=== PATIENT | female | born 1940 | race Caucasian/White ===

== ENCOUNTER 2017-05-04 11:54 | Observation (INO) ==
[2017-05-04] MEDS ORDERED: Vancomycin 1,000 MG in D5% in Water 250 ML IVPB ONE (12:28)
[2017-05-04] MEDS ORDERED: Ringers Solution, Lactated 1,000 ML IVC SCH (12:30)
--- NOTE | 2017-05-04 12:38 | Anesthesia Evaluation PreOp ---
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 Significant HX Other Medical History: Renal (one kidney, s/p donor nephrectomy), Diabetes Type II Anesthesia History: No Prior Anesthetic Complications, Past Anesthesia (donor nephrectomy, hysterectomy, tonisllectomy, cataract, liver bx, jaw fx, angioplasty, foot sx) Alcohol Use: none Drug use: none Medications and Allergies Clopidogrel [Plavix] 75 mg PO DAILY 05/02/17 [History] Insulin Glargine,Hum.rec.anlog [Lantus Solostar] 15 unit SQ QPM 05/02/17 [ History] Lisinopril [Zestril] 20 mg PO QPM 05/02/17 [History] Lisinopril [Zestril] 40 mg PO QAM 05/02/17 [History] Meclizine [Antivert] 25 mg PO TID PRN 05/02/17 [History] Oxycodone HCl [Oxaydo] 5 mg PO Q8H PRN 05/02/17 [History] Rosuvastatin [Crestor] 10 mg PO DAILY 05/02/17 [History] 3 Allergy/AdvReac Type Severity Reaction Status Date / Time cephalexin [From Keflex] AdvReac See Verified 05/04/17 12:34 Comments IV DYE AdvReac See Uncoded 05/04/17 12:34 Comments - Meds/Allergy Pre-op Review Medications Reviewed: Yes Allergies Reviewed: Yes Beta Blockers on Current Med List: No Anesthesia Results - Labs Laboratory Tests 03/22/17 05/01/17 05/01/17 10:57 10:48 10:48 WBC Hgb Hct Plt Count PT 13.3 H INR 1.2 APTT 30.0 Sodium 136 Potassium 3.9 Chloride 104 Carbon Dioxide 26 BUN 32 H Creatinine 1.76 H Glucose 149 H Est Mean Plasma Glucose 120 Hemoglobin A1c 5.8 H 05/01/17 10:48 WBC 9.0 Hgb 10.6 L Hct 34.9 L Plt Count 363 PT INR APTT Sodium Potassium Chloride Carbon Dioxide BUN Creatinine Glucose Est Mean Plasma Glucose Hemoglobin A1c - Imaging EKG: report reviewed (SR) Anesthesia Exam O2 Sat Height 1.57 m Height 1.57 m Height 1.57 m Weight 57.606 kg Weight 57.606 kg Weight 57.606 kg O2 Sat by Pulse Oximetry 96 Vital Signs Temp Pulse Resp BP Pulse Ox 99.0 F 95 18 153/75 96 05/04/17 12:30 05/04/17 12:30 05/04/17 12:30 05/04/17 12:30 05/04/17 12:30 Height: 1.57m Weight: 57kg NPO (# of Hours): >8 - HEENT Pupil (Motor): Pupils equal, EOMI Mallampati: II Teeth: Edentulous, Prosthesis (dentures upper and lower) Oral Opening: Greater than 3 - SENIOR MASTER SCHEDULER LOC: Oriented SENIOR MASTER SCHEDULER Motor: Normal RUE, Normal LUE, Normal RLE, Normal LLE, Normal Face SENIOR MASTER SCHEDULER Sensory: Normal: RUE, LUE, RLE, LLE, Face - Cardiac Rhythm: Regular - Pulmonary Breath Sounds: bilateral Clear Respiratory Effort: Symmetrical Anesthesia Assess/Plan ASA Score: 3 Modified Ragland Scale for Level of Consciousness: Cooperative, oriented, and tranquil Anesthetic Plan: General (r/b/a discussed, questions answered, consent obtained) Monitoring Plan: Standard Monitors, A-Line Recovery Plan: PACU
[2017-05-04] MEDS ORDERED: Heparin 1,000 UNITS/500 mL 1,000 ML ONE (12:59)
[2017-05-04] MEDS ORDERED: *HR* Propofol 200 MG/20 ML VIAL IVP ONE (12:59)
[2017-05-04] MEDS ORDERED: *HR* Rocuronium Bromide 50 MG/5 ML VIAL ONE (12:59)
[2017-05-04] MEDS ORDERED: Lidocaine -MPF 2% 2 ML VIAL ONE (12:59)
[2017-05-04] MEDS ORDERED: *HR* FentaNYL (PF) 100 MCG/2 ML VIAL ONE (12:59)
[2017-05-04] MEDS ORDERED: *HR* Phenylephrine 10 MG/ML VIAL ONE (12:59)
[2017-05-04] MEDS ORDERED: *HR* Remifentanil 2 MG VIAL IVP ONE (12:59)
[2017-05-04] MEDS ORDERED: Heparin 1,000 UNITS/500 mL 500 ML ONE (13:01)
--- NOTE | 2017-05-04 13:15 | History & Physical Report ---
Date of Encounter: 05/04/17 Time of Encounter: 12:50 24 Hour HP Update - Instructions Instructions: If the History and Physical is less than 30 days old and was completed prior to A.M. admission and or procedure and has NOT been updated on calendar day of procedure please complete this update prior to performing procedure. - Update Patient reports changes in Medical Condition: No Changes in examination, assessment, or condition: No Changes in Medication: No Preop tests/diagnostics Reviewed: Yes Surgery Remains Indicated: Yes Consent for Planned Operative Procedure(s) Verified: Yes - Pre-Operative Checklist Preoperative Checklist Indicated: Yes Prophylactic Antibiotic Ordered: Yes (vancomycin due to mrsa risk) Home Medications Include Beta Dung: No Beta Dung Taken Today (Day of Surgery): No Beta Dung Taken Yesterday (Day Prior to Surgery): No Is VTE Prophylaxis Indicated?: Yes
[2017-05-04] MEDS ORDERED: Isovue-300 150 ML INFUS..BTL IV ONE (13:32)
[2017-05-04] MEDS ORDERED: Hydrocortisone Sodium Succ 100 MG/2 ML VIAL ONE (13:35)
[2017-05-04] MEDS ORDERED: Famotidine 20 MG/2 ML VIAL ONE (13:36)
[2017-05-04] MEDS ORDERED: *HR* Heparin 5,000 UNIT/ML VIAL ONE (14:42)
[2017-05-04] MEDS ORDERED: Water for inj. (sterile) 10 ML IV ONE (14:43)
[2017-05-04] MEDS ORDERED: *HR* HYDROmorphone (PF) 1 MG/ML SYRINGE IVP PRN (14:51)
[2017-05-04] MEDS ORDERED: *HR* Promethazine 25 MG/ML VIAL IVP PRN (14:51)
[2017-05-04] MEDS ORDERED: Dexamethasone 4 MG/ML VIAL ONE (15:00)
[2017-05-04] MEDS ORDERED: Ondansetron 4 MG/2 ML VIAL ONE (15:00)
--- NOTE | 2017-05-04 16:37 | Operative Note ---
Date of procedure: 05/04/17 Pre-op diagnosis: Peripheral vascular disease with ulceration Post-op diagnosis: same Procedure: 1. Abdominal aortogram. 2. Left common iliac artery 7 x 57mm stent placement. 3. Left iliofemoral endarterectomy with bovine pericardial patch angioplasty. 4. Left deep femoral endarterectomy. Complications: None Anesthesia: GETA Surgeon: Shaka Garcia Was there an home based assistant present: No Estimated blood loss (cc): 50 Specimen: Left iliofemoral plaque Condition: stable Disposition: PACU Procedure in Detail: Indications: The patient is a 76 year old male with disabling claudication and rest pain due to a left iliac artery chronic occlusion. She developed left forefoot, mdifoot and hindfoot ulcerations as well. Revascularization was recommended to decrease her risk of limb loss and alleviate her symptoms. Procedure: The patient was identified in the preoperative area. The risks, benefits, and alternatives of the procedure were discussed. All questions were answered. The patient was taken to the operating room and placed in supine position on the operating room table. After the induction of general endotracheal anesthesia, he was cleaned and draped in normal sterile fashion. An oblique incision was made over the left groin sharply. Hemostasis was obtained with electrocautery. Through a process of blunt, sharp, and electrocautery dissection, the left femoral vessels were dissected circumferentially and surrounded with vessel loops. The left common femoral artery was accessed with a large bore needle. The external iliac and femoral arteries were noted to be heavily calcified. A wire was advanced into the left extrenal iliac artery was the needle was exchanged for a 6 czech sheath. Using a Berenstain catheter and glidewire, the left common iliac artery occlusion was traversed. An angiogram was then performed to confirm intraaortic position and for stent sizing. A KBLEson wire was advanced through the catheter and positioned in the aorta. A 7 x 57mm stent was advanced across the occlusion and deployed. A completion angiogram revealed no hemodynamically significant residual stenosis. The vessel loops were applied to tension. The wire and sheath were removed. An arteriotomy was made through the arterial puncture. It was extended proximally into the extrenal iliac artery and distally into the deep femoral artery. At this time, it was noted that nearly occlusive plaque extended from the external iliac atery through the deep and superficial femoral artery origins. The left superficial femoral artery was noted to be chronically occluded. A dense calcified laque was noted to be extending into the external iliac artery. Pulsatile flow was noted from the external iliac artery on release of the clamp. No retrograde flow was noted on release of the deep femoral vessel loop. Using a dental freer, an external iliac, a common femoral and a deep femoral endarterectomy were performed. Upon removal of the plaque, no elevated flaps were noted. Release of the vessel loops revealed collateral antegrade and retrograde flow. The loops were then applied to tension. A hemashield patch was cut to fit the arteriotomy and then sutured in place with a running 6-0 prolene. Prior to completing the patch, the left femoral vessels were flushed through the patch and heparin was infused into the lumen. The patch was completed and flow was restored in the left lower extremity. Thrombin and gelfoam were used to aid in hemostasis. The wound was irrigated with antibiotic-containing saline. Platelet rich and platelet poor plasma were infused into the wounds. Meticulous hemostasis was obtained throughout the wound with electrocautery. The wound was reapproximated with layers of 2-0 and 3-0 Vicryl. Skin was reapproximated with 3-0 Monocryl. A sterile dressing was applied. The patient was extubated and taken to recovery room in stable condition.
[2017-05-04] MEDS: *HR* FentaNYL (PF) 100 MCG/2 ML VIAL IVP PRN ×4 (17:02→17:37)
[2017-05-04] MEDS ORDERED: Vancomycin 1,000 MG, Sodium Chloride IRRigation 1,000 ML IR ONE (17:30)
--- NOTE | 2017-05-04 17:49 | Anesthesia Evaluation Post Op ---
Date of Encounter: 05/04/17 Time of Encounter: 17:48 - Vital Signs Vital Signs: Vital Signs/O2 Sat, Most Current Temp Pulse Resp BP Pulse Ox 97.5 F L 74 18 163/66 96 05/04/17 16:34 05/04/17 17:44 05/04/17 17:44 05/04/17 17:44 05/04/17 17:44 - Lungs Lungs: Clear Ascult./Percussion - Airway Airway: Non-obstructed - Cardiovascular Regular Rate - Mental Status Mental Status: Alert & Oriented, Answers Appropriately - Pain Pain Scale: 0 Pain Scale used: Numeric (1 - 10) - Nausea Vomiting Nausea Vomiting: Not Present - Hydration Hydration: NPO, Goodman catheter - Discharge PostOp Status: Transfer Patient to floor Attestation: I have assessed this patient and find they meet discharge criteria.
[2017-05-04] MEDS ORDERED: *HR* Labetalol 20 MG/4 ML SYRINGE IVP PRN (19:38)
[2017-05-04] MEDS ORDERED: D5% in Water 1,000 ML IVC PRN (19:38)
[2017-05-04] MEDS ORDERED: Dextrose Gel 15 GM/37.5 ML TUBE PO PRN ×2 (19:38)
[2017-05-04] MEDS ORDERED: Acetaminophen 325 MG TABLET PO PRN (19:38)
[2017-05-04] MEDS ORDERED: OXYCODONE Oral CONC 10 MG/0.5 ML ORAL.SYG SL PRN (19:38)
[2017-05-04] MEDS ORDERED: *HR* OxyCODONE Immed Rel 5 MG TABLET PO PRN (19:38)
[2017-05-04] MEDS ORDERED: Naloxone 0.4 MG/ML INJ IVP PRN (19:38)
[2017-05-04] MEDS ORDERED: Ondansetron 4 MG/2 ML VIAL IVP PRN (19:38)
[2017-05-04] MEDS ORDERED: Lisinopril 20 MG TABLET PO SCH (19:38)
[2017-05-04] MEDS ORDERED: *HR* Dextrose 50 % in Water (Syg) 50 ML SYRINGE IVP PRN (19:38)
[2017-05-04] MEDS ORDERED: *HR* Metoprolol 5 MG/5 ML VIAL IVP ONE (20:10)
[2017-05-04] MEDS: *HR* OxyCODONE Immed Rel 5 MG TABLET PO PRN ×2 (20:15→23:51)
[2017-05-04] MEDS ORDERED: Insulin LISPRO 300 UNITS/3 ML VIAL SQ SCH (21:00)
[2017-05-04] MEDS: *HR* Metoprolol 5 MG/5 ML VIAL IVP SCH ×2 (21:18→23:51)
[2017-05-05] MEDS ORDERED: Vancomycin 1,000 MG in D5% in Water 250 ML IVPB ONE
[2017-05-05 04:18] LABS: Basophils % 0.1 %; Eosinophils % 0.1 %; Hematocrit 30.1 % (35.3-44.9); Hemoglobin 9.1 g/dL (11.5-15.4); Immature Granulocytes % 0.9 % (0-4); Lymphocytes # 0.8 K/mcL (0.6-4.6); Lymphocytes % 8.1 %; Mean Corpuscular HGB Conc 30.2 g/dL (31.6-35.5); Mean Corpuscular Hemoglobin 27.9 pg (28.0-33.3); Mean Corpuscular Volume 92.3 fL (83.0-100.0); Mean Platelet Volume 10.1 fL (9.4-12.4); Monocytes # 0.5 K/mcL (0.0-1.3); Monocytes % 5.7 %; Platelet Count 318 K/mcL (140-400); Red Blood Count 3.26 M/mcL (3.82-4.97); Red Cell Distribution Width 14.7 % (11.5-14.5); Segmented Neutrophils % 85.1 %
[2017-05-05 04:37] LABS: Calcium 8.7 mg/dL (8.6-10.3); Potassium 4.6 mEq/L (3.5-5.1)
[2017-05-05] MEDS: *HR* Metoprolol 5 MG/5 ML VIAL IVP SCH (06:00)
[2017-05-05] MEDS ORDERED: *HR* Heparin 5,000 UNIT/ML VIAL SQ SCH ×2 (06:00)
[2017-05-05 06:57] VITALS: BP 159/79
--- NOTE | 2017-05-05 07:15 | Discharge Summary ---
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 Priority: Primary Status: Chronic (2) CKD (chronic kidney disease), stage IV Priority: Secondary Status: Chronic (3) Essential hypertension Priority: Secondary Status: Chronic (4) Mixed hyperlipidemia Priority: Secondary Status: Chronic (5) Diabetes mellitus with peripheral angiopathy without gangrene Priority: Secondary Status: Chronic Qualifiers: Diabetes mellitus type: type 2 Diabetes mellitus snf insulin use: with termite treater use Qualified Code(s): E11.51 - Type 2 diabetes mellitus with diabetic peripheral angiopathy without gangrene; Z79.4 - correction (current) use of insulin; Z79.4 - parts counterman (current) use of insulin; Z79.4 - correction ( current) use of insulin; Z79.4 - correction (current) use of insulin (6) Chronic anemia Priority: Secondary Status: Chronic Comments: The patient has chronic disease anemia. She is hemodynamically stable without evidence of ongoing blood loss. - Discharge Medications Prescriptions: Oxycodone HCl [Oxaydo] 5 mg PO Q6H PRN 5 Days #20 tablet.orl PRN Reason: postoperative pain Home Medications: Clopidogrel [Plavix] 75 mg PO DAILY 05/02/17 [History] Insulin Glargine,Hum.rec.anlog [Lantus Solostar] 15 unit SQ QPM 05/02/17 [ History] Lisinopril [Zestril] 20 mg PO QPM 05/02/17 [History] Lisinopril [Zestril] 40 mg PO QAM 05/02/17 [History] Meclizine [Antivert] 25 mg PO TID PRN 05/02/17 [History] Rosuvastatin [Crestor] 10 mg PO DAILY 05/02/17 [History] Oxycodone HCl [Oxaydo] 5 mg PO Q6H PRN 5 Days #20 tablet.orl 05/05/17 [Rx] Allergies/Adverse Reactions: 3 Allergy/AdvReac Type Severity Reaction Status Date / Time cephalexin [From Keflex] AdvReac See Verified 05/04/17 12:34 Comments IV DYE AdvReac See Uncoded 05/04/17 12:34 Comments Date of admission: 05/04/17 19:23 Primary care physician: Yemi Childress MD Procedure(s) Performed: Left iliac stent, left iliofemoral endarterectomy. Discharging clinician: Shaka Garcia Anticipated date of discharge: 05/05/17 - Patient Status Disposition: Home, Self-Care Condition: Good Functional capacity at discharge: independent ambulation Overall status at discharge: patient is back to baseline - Discharge Instructions Instructions: Peripheral Vascular Stent Placement (DC), Peripheral Vascular Stent Placement (GEN), Diabetes Mellitus Type 2 in Adults (DC), Peripheral Vascular Disorders (DC) Follow Up With: Yemi Childress MD [Primary Care Provider] - (SENT WEB REQUEST ON 05-04-17 @ [id number]) Shaka Garcia MD [Partnered Physician] - 06/20/17 2:40 pm Additional Instructions: May remove bandages and shower on 05/06/17. No tub baths or swimming until 05/27/17. Wash wounds gently and pat to dry. Apply dry dressing to groin wounds daily for [address] Garcia at [phone] with questions or concerns. - Diet and Activity Activity: increase activity as tolerated Diet: advance to your usual diet - Hospital Course Hospital course: Ms. Donato is a 76 year old female with peripheral vascular disease with ulceration. She was admitted and underwent a left iliac stent and left lower extremity endarterectomy. She tolerated the procedure well and was discharged in stable condition on postoperative day #1 without complications. - Time Spent with Patient Total time spent providing and/or coordinating discharge services: Exam Vital Signs, Last 4 Hours Temp Pulse Resp BP Pulse Ox 05/05/17 06:55 98.1 F 68 12 159/79 94 05/05/17 04:19 98.4 F 76 18 171/79 99 General: Present: Conversant, No Apparent Distress Neck: Absent: JVD Cardiac: Present: Reg Rate and Rhythm Lungs: Present: Normal Breath Sounds Neuro: Present: Alert and responsive, No focal deficits noted, Motor nerves grossly intact, Sensory nerves grossly intact Abdomen: Present: Soft Vascular: Present: Normal capillary refill, Pulse, diminished (pedal signals biphasic), Surgical incisions (clean and dry, no hematoma). Absent: Cyanosis, Edema Skin: Present: Wound/ulcer(s) (left foot ulcers dry without erythema) - VTE Documentation of Mechanical Device: Intermittent pneumatic compression device
[2017-05-05] MEDS ORDERED: Insulin LISPRO 300 UNITS/3 ML VIAL SQ SCH (07:30)
[2017-05-05] MEDS ORDERED: Lisinopril 20 MG TABLET PO SCH (09:00)
== END 2017-05-05 11:06 | disposition home or self-care (01) ==
LOC: SAMDAY 11:54 → INTOOBSV 19:23 → 2NNU 19:23
PROVIDERS: ADMIT Surgery; ATTEND Surgery